=== PATIENT | male | born 1970 | race Two or more races ===

== ENCOUNTER 2019-02-06 17:28 | Inpatient (IN) | payer OTHER ==
[~2019-02-06] VITALS: Ht 182.9 cm; Wt 86.2 kg
[2019-02-06 20:30] VITALS: BP 115/70
--- NOTE | 2019-02-06 20:30 | NUR ---
RECEIVED PT FROM TRANSPORTATION TEAM. PT CAME IN [facility] AND ABLE TO AMBULATE TO [facility] BED. IV SITE ON L FA, 22G, PATENT, INTACT, AND ASYMPTOMATIC. PT ON 3LPM O2 VIA NC. BREATHING EVEN AND UNLABORED AT THIS TIME. SKIN INTACT, WARM AND DRY TO TOUCH. DX: ASTHMA, PLEURAL EFFUSION, COUGH. MRSA SWAB DONE, VS CHECKED, WITHIN PT'S BASELINE. BED IN LOW POSITION, CALL LIGHT WITHIN REACH.
--- NOTE | 2019-02-06 20:40 | NUR ---
REPORTED TO PRINTING PRESS MACHINE OPERATOR DR. MORALES THAT PATIENT ADMITTED. ALREADY AWARE AND WILL PLACE ORDER.
--- NOTE | 2019-02-06 21:05 | NUR ---
PT C/O HUNGER. GIVEN CHICKEN SANDWICH WITH WATER.
[2019-02-06] MEDS ORDERED: ACETAMINOPHEN 325 MG TAB PO PRN (21:20)
[2019-02-06] MEDS ORDERED: HYDROcodone/APAP 5/325 MG 1 TAB TAB PO PRN (21:20)
[2019-02-06] MEDS ORDERED: MORPHINE SULFATE 4 MG/ML SYR IVP PRN (21:20)
[2019-02-06] MEDS ORDERED: ONDANSETRON 4 MG/2 ML VIAL IVP PRN (21:20)
--- NOTE | 2019-02-06 23:55 | NUR ---
VS CHECKED, WITHIN PT'S BASE LINE. WILL CONTINUE TO MONITOR.
[2019-02-07] VITALS: BP 108/54
[2019-02-07] MEDS: PROMETH/CODEINE 6.25-10MG/5ML 5 ML UDC PO PRN (00:36)
--- NOTE | 2019-02-07 00:36 | NUR ---
PT C/O COUGHING. REPORT DR. MORALES, AND PHENERGAN/CODEINE GIVEN DR. MORALES ORDERED. PT TOLERATED WELL.
[2019-02-07] MEDS: ALBUTEROL 0.083% 2.5 MG/3 ML NEBU INH PRN ×2 (01:03→18:59)
--- NOTE | 2019-02-07 02:35 | NUR ---
PT SLEEPING IN BED COMFORTABLY. NO ACUTE DISTRESS NOTED.
[2019-02-07 04:00] VITALS: BP 91/60
--- NOTE | 2019-02-07 04:05 | NUR ---
VS CHECKED, WITHIN PT'S BASELINE. WILL CONTINUE TO MONITOR.
--- NOTE | 2019-02-07 06:25 | NUR ---
PT SLEEPING IN BED COMFORTABLY. NO ACUTE DISTRESS NOTED.
[2019-02-07 07:17] LABS: BASOPHILS % (AUTO) 0.1 % (0.0-2.0); HEMATOCRIT 36.2 % (36-52); LYMPHOCYTES # (AUTO) 0.8 K/uL (2.0-11.5); LYMPHOCYTES % (AUTO) 3.7 % (20.5-51.1); MEAN CORPUSCULAR HEMOGLOBIN 36 pg (27-31); MEAN CORPUSCULAR HGB CONC 33 g/dL (33-37); MEAN CORPUSCULAR VOLUME 109.2 fL (80-94); MONOCYTES % (AUTO) 4.6 % (1.7-9.3); NEUTROPHILS # (AUTO) 19.7 K/uL (1.8-7.7); NEUTROPHILS % (AUTO) 91.6 % (42.2-75.2); PLATELET COUNT (AUTO) 159 K/uL (140-450); RED BLOOD CELL COUNT(AUTO) 3.32 MIL/uL (4.20-6.10); RED CELL DISTRIBUTION WIDTH 13.5 % (11.6-13.7); WHITE BLOOD COUNT (AUTO) 21.5 K/uL (4.8-10.8)
--- NOTE | 2019-02-07 07:20 | NUR ---
RECEIVED BEDSIDE REPORT FROM HEALTH RECORDS TECHNOLOGY TEACHER NURSE, PT IS AWAKE AND ALERT, NO S/S OF ACUTE DISTRESS NOTED. PT IS ON 3L O2 NC. SKIN IS INTACT. IV SITE L AC 20 G, SALINE LOCKED. PT IS AMBULATORY AND ABLE TO MAKE NEEDS KNOWN. CALL LIGHT IS WITHIN REACH.
[2019-02-07 07:31] LABS: ANION GAP 13.3 (8-16); CARBON DIOXIDE 24.9 mmol/L (21-32); CREATININE 0.7 mg/dL (0.7-1.3); POTASSIUM 4.2 mmol/L (3.5-5.1)
[2019-02-07 07:43] LABS: PHOSPHORUS 2.1 mg/dL (2.5-4.9)
[2019-02-07 08:00] VITALS: BP 104/68
--- NOTE | 2019-02-07 10:31 | NUR ---
PT IS SLEEPING, NO S/S OF DISTRESS
[2019-02-07 11:42] LABS: PROTHROMBIN TIME 15.5 secs (10.8-13.4)
[2019-02-07 12:00] VITALS: BP 104/67
--- NOTE | 2019-02-07 12:01 | NUR ---
DISCHARGE PLANNIN48 Y/O MALE PATIENT FROM HOME. ADMITTED DUE TO WORSENING DYSPNEA FOR THE PAST WEEK. NO PAST MEDICAL HISTORY. INITIAL DIAGNOSIS OF ASTHMA, PLEURAL EFFUSION AND COUGH. WBC 21.5. ON UNASYN IV. CXR SHOWED LARGE RIGHT PLEURAL EFFUSION. UNDERLYING PULMONARY NODULE, MASS OR CONSOLIDATION IS NOT EXCLUDED. FOR THORACENTESIS. WILL DC IN AM IF IMPROVED. Addendum: 02/08/19 at 1444 by Vane Lombardi CM IR WAS NOT ABLE TO DO THORACENTESIS YESTERDAY DUE TO PATIENT'S ELEVATED INR. REPEAT INR WAS DRAWN THIS MORNING, WENT UP TO 1.63. FFP ORDERED. WILL FOLLOW UP. Addendum: 02/10/19 at 1238 by Vane Lombardi CM RECEIVED AN ORDER FOR HIGHER LEVEL OF CARE TRANSFER TO [facility] FOR THORACIC SURGERY. CONTACTED PAT VALER[facility]O MARIBELL [facility] AT [phone], SHE STATED THEY HAVE A MED SURG BED AT THIS THIS TIME. I TOLD HER I HAVE TO GET AN AUTH FROM INSURANCE. SHE PROVIDED ME WITH FAX NUMBER [phone] TO SEND REFERRAL. CONTACTED KAITLYNN OF [facility] AT [phone] REGARDING ORDER. SHE STATED THEY ARE CONTRACTED WITH [facility] AND HAVE [facility] CALL HER FOR AUTH. I ASKED FOR TRANSPORT AUTH WELL. SHE STATED SHE WILL GET BACK TO ME FOR TRANSPORT AUTH. REFERRAL AND ORDER SENT TO [facility] AND [facility]. Addendum: 02/10/19 at 1330 by Vane Lombardi CM RECEIVED A CALL FROM [facility], SHE STATED PATIENT WILL GO TO [id number] DONNELLY. NUMBER TO CALL FOR REPORT [phone]. PRIMARY RN RAGHAVENDRA AND CHARGE NURSE MAMADOU MADE AWARE.
--- NOTE | 2019-02-07 12:15 | NUR ---
Manager Desktop Note: Basic Screen: Yes High Risk DC Screen [place]: GAYATRI Luciano Relationship: SISTER Pre-Admission Living Arrangements: Lives with Other Prior ADL Independent Current Home Health Name/Tel: N/A Current DME/02 Name/Tel: N/A Current Hospice Name/Tel: N/A Current Dialysis Name/Tel: N/A Healthcare Decision Maker: Patient Advance Directive Yes Physician Orders for Life Sustaining Treatment Form No Patient/Family Have Educational Needs No Information Taught: Advance Directive Person Taught: Patient Teaching Tools: Verbal Participation Level: Active Evaluation: Verbalizes Understanding Needs Additional Education: No Discipline: Case Mgt/Social Svcs Tentative Discharge Plan/Destination: No Needs Identified Will require assistance post discharge: No Referred to World History Teacher: No Tentative Discharge Plan Summary: Patient is a 48 year old male admitted for asthma and pleural effusion. Patient has PMHX of asthma. Patient was admitted from home. SW verified demographics with patient. Pateint stated that his PCP is Dr. Nancy Davies and was last seen two years ago. Patient reports no history of mental health and no history of substance abuse. Patient's tentative discharge plan is to return home. No further needs identified. Signature: RAHUL Quiñonez Date: Feb 07, 2019 Time: 12:14
[2019-02-07] MEDS: AMPICILLIN/SULBACTAM 3 GM in NACL 0.9% 100 ML IV SCH ×3 (13:02→23:06)
--- NOTE | 2019-02-07 13:10 | NUR ---
GOT A CALL FROM CUSTOMS INVESTIGATOR, SHE SAID SHE SPOKE WITH THE RADIOLOGIST WHO WILL BE DOING THORACENTESIS, PER RADIOLOGIST THE PT'S PTT/INR NEEDS TO BE LOWER BEFORE THE PROCEDURE IS DONE.
--- NOTE | 2019-02-07 14:17 | NUR ---
PCP Appointment: OSMANI contacted Jocelin from Dr. Nancy Davies's office. OSMANI attempted to schedule hospital follow up appointment. Jocelin stated that patient has not been seen by PCP before and would need to register as a new patient from 9:00AM - 12:30PM on 02/23/2019 @ [address] [place] [address]. Jocelin stated that patient would complete registration and a physical and follow up would be scheduled. OSMANI left appointment slip with registration time in patient's chart to be given at discharge.
--- NOTE | 2019-02-07 15:48 | NUR ---
PATIENT HAS BEEN SCREENED AND CATEGORIZED LOW NUTRITION RISK. PATIENT WILL BE SEEN WITHIN 7 DAYS OF ADMISSION. 02/13/[address]
[2019-02-07 16:00] VITALS: BP 123/69
--- NOTE | 2019-02-07 18:35 | NUR ---
PT ATE 100% OF HIS DINNER, NOW SITTING UP IN BED WATCHING TV. IV UNASYN IS INFUSING. NO C/O OF SOB.
--- NOTE | 2019-02-07 19:20 | NUR ---
PT ENDORSED TO PADDLE DYEING MACHINE OPERATOR NURSE IN STABLE CONDITION.
--- NOTE | 2019-02-07 19:28 | NUR ---
RECEIVED BEDSIDE REPORT FROM DAY SHIFT NURSE. PATIENT IS AWAKE, ALERT, AND COOPERATIVE. RESPIRATION EVEN UNLABORED ON 3L 02 NC. NO DISTRESS NOTED. SKIN IS WARM AND DRY. IV PATENT AND INTACT. DENIES PAIN. PLAN OF CARE WAS DISCUSSED. ALL SAFETY MEASURES IN PLACE. BED IS AT LOW POSITION. CALL LIGHT WITHIN REACH AND VERBALIZES ITS USE. WILL CONTINUE TO MONITOR.
[2019-02-07 20:00] VITALS: BP 102/56
--- NOTE | 2019-02-07 20:00 | NUR ---
INITIAL ASSESSMENT DONE. VITALS WERE TAKEN. PATIENT IN STABLE CONDITION. NO DISTRESS NOTED. WILL CONTINUE TO MONITOR.
--- NOTE | 2019-02-07 21:00 | NUR ---
PATIENT IN BED WATCHING TV RESPIRATION EVEN UNLABORED ON 3L NC O2. NO DISTRESS NOTED. WILL CONTINUE TO MONITOR.
--- NOTE | 2019-02-07 23:45 | NUR ---
VITALS WERE TAKEN. PATIENT IN STABLE CONDITION. NO DISTRESS NOTED. WILL CONTINUE TO MONITOR.
[2019-02-08] VITALS: BP 114/64
[2019-02-08] MEDS: PROMETH/CODEINE 6.25-10MG/5ML 5 ML UDC PO PRN (00:12)
--- NOTE | 2019-02-08 00:13 | NUR ---
PATIENT COMPLAINED OF COUGH. PRN COUGH ADMINISTERED PER ORDER. WILL CONTINUE TO MONITOR.
--- NOTE | 2019-02-08 03:05 | NUR ---
CHECKED ON PATIENT. PATIENT SLEEPING RESPIRATION EVEN UNLABORED ON 2L NC O2. NO DISTRESS NOTED. WILL CONTINUE TO MONITOR.
[2019-02-08 04:00] VITALS: BP 110/72
--- NOTE | 2019-02-08 04:05 | NUR ---
VITALS WERE TAKEN. PATIENT IN STABLE CONDITION. NO DISTRESS NOTED. WILL CONTINUE TO MONITOR.
[2019-02-08] MEDS ORDERED: AMPICILLIN/SULBACTAM 3 GM VIAL ONE (05:55)
[2019-02-08] MEDS: AMPICILLIN/SULBACTAM 3 GM in NACL 0.9% 100 ML IV SCH ×3 (06:06→19:40)
--- NOTE | 2019-02-08 06:45 | NUR ---
PATIENT IN BED SLEEPING RESPIRATION EVEN UNLABORED ON ROOM AIR. NO DISTRESS NOTED. WILL CONTINUE TO MONITOR
--- NOTE | 2019-02-08 07:13 | NUR ---
ENDORSED PATIENT TO DAY SHIFT NURSE. PATIENT IN STABLE CONDITION.
--- NOTE | 2019-02-08 07:14 | NUR ---
RECEIVED BEDSIDE REPORT FROM RADIO DIVISION LIEUTENANT NURSE. PATIENT IS AWAKE, ALERT AND ORIENTEDX4. NO SIGNS OF DISTRESS ON 3L NC. SKIN IS INTACT. IV ON L AC 20G SL. CLEAN, DRY AND INTACT. TELE MONITOR IN PLACE. AMBULATORY. CONTINENT. ABLE TO MAKE NEEDS KNOWN. BED IN LOW POSITION. CALL LIGHT WITHIN REACH. WILL CONTINUE TO MONITOR
[2019-02-08 08:00] VITALS: BP 105/75
[2019-02-08 08:01] LABS: BASOPHILS % (AUTO) 0.2 % (0.0-2.0); EOSINOPHILS # (AUTO) 0.1 K/uL (0-0.4); EOSINOPHILS % (AUTO) 0.4 % (0.0-4.0); HEMATOCRIT 35.4 % (36-52); HEMOGLOBIN 11.6 g/dL (12.0-18.0); LYMPHOCYTES # (AUTO) 1.3 K/uL (2.0-11.5); LYMPHOCYTES % (AUTO) 9.3 % (20.5-51.1); MEAN CORPUSCULAR HEMOGLOBIN 36 pg (27-31); MEAN CORPUSCULAR HGB CONC 33 g/dL (33-37); MEAN CORPUSCULAR VOLUME 109.6 fL (80-94); MONOCYTES # (AUTO) 1.1 K/uL (0.8-1.0); MONOCYTES % (AUTO) 7.6 % (1.7-9.3); NEUTROPHILS # (AUTO) 11.5 K/uL (1.8-7.7); NEUTROPHILS % (AUTO) 82.5 % (42.2-75.2); PLATELET COUNT (AUTO) 155 K/uL (140-450); RED BLOOD CELL COUNT(AUTO) 3.23 MIL/uL (4.20-6.10); RED CELL DISTRIBUTION WIDTH 13.5 % (11.6-13.7)
[2019-02-08 08:20] LABS: ANION GAP 11.5 (8-16); CARBON DIOXIDE 25.2 mmol/L (21-32); CREATININE 0.7 mg/dL (0.7-1.3); POTASSIUM 3.7 mmol/L (3.5-5.1)
[2019-02-08 08:27] LABS: MAGNESIUM 1.7 mg/dL (1.8-2.4); PHOSPHORUS 2.7 mg/dL (2.5-4.9)
[2019-02-08 09:09] LABS: PROTHROMBIN TIME 16.4 secs (10.8-13.4)
--- NOTE | 2019-02-08 09:12 | NUR ---
PATIENT IN NO DISTRESS. WILL CONTINUE TO MONITOR THE PATIENT. PATIENT REQUESTS TWO CUPS. GAVE PATIENT TWO CUPS. WILL CONTINUE TO MONITOR
--- NOTE | 2019-02-08 10:34 | NUR ---
LAYING IN BED. NO SIGNS OF DISTRESS. WILL CONTINUE TO MONITOR
--- NOTE | 2019-02-08 11:22 | NUR ---
PATIENT SIGNED CONSENT FOR FFP. EDUCATED ON BLOOD TRANSFUSION. BLOOD TRANSFUSION REACTION AND GAVE HIM THE GUIDE. PATIENT HAS NO QUESTIONS. WILL CONTINUE TO MONITOR
--- NOTE | 2019-02-08 11:31 | NUR ---
ADMINISTERED MEDS. EDUCATED ON SIDE EFFECTS. PATIENT TOLERATED WELL. WILL CONTINUE TO MONITOR
[2019-02-08] MEDS ORDERED: MAGNESIUM OXIDE 400 MG TAB PO SCH (11:50)
[2019-02-08 12:00] VITALS: BP 111/75
--- NOTE | 2019-02-08 13:56 | NUR ---
PATIENT IN NO DISTRESS RESTING IN BED. NO SIGNS OF DISTRESS. WILL CONTINUE TO MONITOR THE PATIENT
[2019-02-08 14:41] LABS: PROTHROMBIN TIME 15.5 secs (10.8-13.4)
--- NOTE | 2019-02-08 15:16 | NUR ---
PATIENT URINATED ON THE FLOOR ACCIDENTALLY. HE WAS UNABLE TO UNZIP HIS PANTS. PATIENT BACK IN BED IN STABLE CONDITION. PAGED EVS TO CLEAN THE FLOOR
[2019-02-08 16:00] VITALS: BP 101/66
--- NOTE | 2019-02-08 17:35 | NUR ---
FFP STARTED. PATIENT SHOWS NO DISTRESS AT THIS TIME
[2019-02-08] MEDS: ALBUTEROL 0.083% 2.5 MG/3 ML NEBU INH PRN (18:57)
--- NOTE | 2019-02-08 19:20 | NUR ---
GAVE BEDSIDE REPORT TO SURGEON/PRESIDENT NURSE. PATIENT ENDORSED IN STABLE CONDITION. ENDORSED TO NURSE TO GET CALL LAB TO DO INR WHEN SECOND FFP IS DONE
--- NOTE | 2019-02-08 19:30 | NUR ---
RECEIVED BEDSIDE REPORT FROM AM SHIFT RN MAMADOU, FOR PT'S CONTINUITY OF CARE. PT AAOX4, LYING DOWN WATCHING TV, IS ON SAVINGS COUNSELOR, IS ON 3L O2 VIA NC, HAS LEFT AC 20G WITH FFP INFUSING, HAS INTERMITTENT PRODUCTIVE COUGHING, DENIES ANY PAIN AT THIS TIME. EXPLAINED TO PT THE EXPLOSIVE TECHNICIAN ROUTINE AND THE ADMINISTRATION OF 2ND UNIT OF FFP, PT VERBALIZED UNDERSTANDING. BED IS ON LOW POSITION, SIDE RAILS ARE UP, AND CALL LIGHT IS WITHIN REACH. WILL MONITOR PT THROUGHOUT SHIFT.
--- NOTE | 2019-02-08 19:40 | NUR ---
FFP INFUSION ENDED. BLOOD TRANSFUSION RECORD DONE. PT DENIES ANY REACTION, NO VISIBLE REACTION NOTED. ADMINISTERED SCHEDULED IV ABX ORDERED. WILL CONTINUE TO MONITOR PT.
[2019-02-08 20:00] VITALS: BP 117/78
--- NOTE | 2019-02-08 20:30 | NUR ---
INFORMED LAB 1ST UNIT OF FFP ENDED. WILL START WITH THE 2ND UNIT OF FFP TO THAW.
--- NOTE | 2019-02-08 22:30 | NUR ---
CALLED LAB FOR STATUS OF FFP, PER LAB, WILL BE DONE SOON.
[2019-02-09] VITALS (8 sets, daily range): BP systolic 99–120; BP diastolic 72–80
[2019-02-09] MEDS: PROMETH/CODEINE 6.25-10MG/5ML 5 ML UDC PO PRN (00:13)
--- NOTE | 2019-02-09 00:13 | NUR ---
ADMINISTERED 2ND UNIT OF FFP, BLOOD TRANSFUSION PROTOCOL IN PLACE, PT DENIES ANY PAIN OR REACTION, REQUESTED FOR COUGH MEDICATION. ADMINISTERED PO PRN COUGH MEDICATION ORDERED. PT TEACHING GIVEN. WILL CONTINUE TO FOLLOW BLOOD TRANSFUSION PROTOCOL.
--- NOTE | 2019-02-09 02:40 | NUR ---
2ND UNIT OF FFP ENDED. FOLLOWED BLOOD TRANSFUSION PROTOCOL, PT DENIES ANY PAIN OR REACTION. WILL CONTINUE TO MONITOR PT.
[2019-02-09] MEDS: AMPICILLIN/SULBACTAM 3 GM in NACL 0.9% 100 ML IV SCH ×4 (03:15→17:18)
--- NOTE | 2019-02-09 03:15 | NUR ---
ADMINISTERED IV ABX ORDERED. PT TOLERATED IT WELL. WILL CONTINUE TO MONITOR PT.
[2019-02-09 06:08] LABS: BASOPHILS % (AUTO) 0.2 % (0.0-2.0); EOSINOPHILS # (AUTO) 0.3 K/uL (0-0.4); HEMATOCRIT 35.5 % (36-52); LYMPHOCYTES % (AUTO) 18.7 % (20.5-51.1); MEAN CORPUSCULAR HEMOGLOBIN 37 pg (27-31); MEAN CORPUSCULAR HGB CONC 34 g/dL (33-37); MEAN CORPUSCULAR VOLUME 108.8 fL (80-94); MONOCYTES # (AUTO) 0.7 K/uL (0.8-1.0); MONOCYTES % (AUTO) 7.1 % (1.7-9.3); NEUTROPHILS # (AUTO) 7.5 K/uL (1.8-7.7); PLATELET COUNT (AUTO) 142 K/uL (140-450); RED BLOOD CELL COUNT(AUTO) 3.26 MIL/uL (4.20-6.10); RED CELL DISTRIBUTION WIDTH 13.4 % (11.6-13.7); WHITE BLOOD COUNT (AUTO) 10.5 K/uL (4.8-10.8)
--- NOTE | 2019-02-09 06:09 | NUR ---
PT LYING DOWN ASLEEP. ADMINISTERED SCHEDULED IV ABX ORDERED. PT DENIES ANY PAIN AT THIS TIME. WILL ENDORSE PT TO AM SHIFT RN FOR PT'S CONTINUITY OF CARE.
[2019-02-09 06:31] LABS: ANION GAP 9.8 (8-16); CARBON DIOXIDE 27.6 mmol/L (21-32); CREATININE 0.6 mg/dL (0.7-1.3); POTASSIUM 3.4 mmol/L (3.5-5.1)
[2019-02-09 06:36] LABS: MAGNESIUM 1.5 mg/dL (1.8-2.4); PHOSPHORUS 3.2 mg/dL (2.5-4.9)
[2019-02-09 06:53] LABS: PROTHROMBIN TIME 15.2 secs (10.8-13.4)
[2019-02-09] MEDS: ALBUTEROL 0.083% 2.5 MG/3 ML NEBU INH PRN ×2 (07:11→20:32)
--- NOTE | 2019-02-09 07:12 | NUR ---
RECEIVED REPORT FROM CAPO RN. PT RESTING IN BED. AAOX4. NO S/S OF ACUTE DISTRESS. PT ON O2 2L NC. IV SITE PATENT AND INTACT. CALL LIGHT WITHIN REACH. SAFETY MEASURES ENSURED. WILL CONTINUE TO MONITOR.
[2019-02-09] MEDS: MAGNESIUM OXIDE 400 MG TAB PO SCH (08:14)
--- NOTE | 2019-02-09 11:13 | NUR ---
PATIENT RESTING IN BED. NO S/S OF ACUTE DISTRESS. PT DENIES PAIN. IV SITE PATENT AND INTACT. CALL LIGHT WITHIN REACH. SAFETY MEASURES ENSURED. WILL CONTINUE TO MONITOR.
[2019-02-09] MEDS ORDERED: POTASSIUM CHLORIDE 10 MEQ TABER PO SCH (12:00)
[2019-02-09] MEDS ORDERED: FUROSEMIDE 40 MG/4 ML VIAL IVP SCH (12:00)
--- NOTE | 2019-02-09 13:57 | NUR ---
THORACENTESIS DONE AT BEDSIDE. CONSENT SIGNED AND TIMEOUT PERFORMED OUT 1345. NO S/S OF ACUTE DISTRESS. PT DENIES PAIN. 1050ML YELLOW DRAINAGE. SENT TO LAB FOR CULTURE.
--- NOTE | 2019-02-09 19:30 | NUR ---
RECEIVED BEDSIDE REPORT FROM AM SHIFT VALERIANO GONZALEZ, FOR PT'S CONTINUITY OF CARE. PT IS LYING DOWN ASLEEP WITH NO SIGNS OF DISTRESS. PT IS ON 2L O2 VIA NC, ON TURF KEEPER, HAS LEFT AC/FA 20G SALINE LOCK. BED IS ON LOW POSITION, SIDE RAILS ARE UP, AND CALL LIGHT IS WITHIN REACH. WILL MONITOR PT THROUGHOUT SHIFT.
--- NOTE | 2019-02-09 20:00 | NUR ---
VS CHECKED AND CHARTED. PT'S DRESSING ON THORACENTESIS SITE IS DRY AND INTACT. PT DENIES ANY PAIN AT THIS TIME AND STATES FEELS MUCH BETTER AND COULD BREATHE MUCH BETTER. WILL CONTINUE TO MONITOR PT.
--- NOTE | 2019-02-09 21:50 | NUR ---
PT REQUESTED FOR SANDWICH AND APPLE JUICE. PT DENIES ANY PAIN AT THIS TIME, DENIES ANY SOB. WILL CONTINUE TO MONITOR PT.
[2019-02-10] VITALS: BP 105/71
--- NOTE | 2019-02-10 | NUR ---
VS CHECKED AND CHARTED. PT ASLEEP WITH NO SIGNS OF DISTRESS, WOKE UP AND DENIES ANY PAIN OR SOB.
--- NOTE | 2019-02-10 02:06 | NUR ---
MADE ROUNDS. PT LYING DOWN ASLEEP WITH NO SIGNS OF DISTRESS OR SOB. WILL CONTINUE TO MONITOR PT.
[2019-02-10 04:00] VITALS: BP 102/72
--- NOTE | 2019-02-10 04:00 | NUR ---
VS CHECKED AND CHARTED. PT ASLEEP WITH NO SIGNS OF DISTRESS OR SOB.
[2019-02-10] MEDS: AMPICILLIN/SULBACTAM 3 GM in NACL 0.9% 100 ML IV SCH ×4 (05:05→12:33)
--- NOTE | 2019-02-10 05:05 | NUR ---
ADMINISTERED SCHEDULED IV ABX ORDERED. PT AWAKE, SITTING UP, DENIES ANY PAIN OR DISCOMFORT OR SOB. WILL CONTINUE TO MONITOR PT.
[2019-02-10 06:28] LABS: ANION GAP 13.1 (8-16); CARBON DIOXIDE 25.7 mmol/L (21-32); CREATININE 0.7 mg/dL (0.7-1.3); MAGNESIUM 1.6 mg/dL (1.8-2.4); PHOSPHORUS 3.6 mg/dL (2.5-4.9); POTASSIUM 3.8 mmol/L (3.5-5.1)
--- NOTE | 2019-02-10 06:35 | NUR ---
PT AWAKE, LYING DOWN RESTING, DENIES ANY PAIN OR DISCOMFORT. WILL ENDORSE TO AM SHIFT RN FOR PT'S CONTINUITY OF CARE.
[2019-02-10 07:15] LABS: BASOPHILS % (AUTO) 0.3 % (0.0-2.0); EOSINOPHILS # (AUTO) 0.5 K/uL (0-0.4); EOSINOPHILS % (AUTO) 3.6 % (0.0-4.0); HEMATOCRIT 38.1 % (36-52); HEMOGLOBIN 12.5 g/dL (12.0-18.0); LYMPHOCYTES # (AUTO) 1.9 K/uL (2.0-11.5); LYMPHOCYTES % (AUTO) 14.6 % (20.5-51.1); MEAN CORPUSCULAR HEMOGLOBIN 36 pg (27-31); MEAN CORPUSCULAR HGB CONC 33 g/dL (33-37); MEAN CORPUSCULAR VOLUME 109.2 fL (80-94); MONOCYTES # (AUTO) 0.7 K/uL (0.8-1.0); MONOCYTES % (AUTO) 5.5 % (1.7-9.3); NEUTROPHILS # (AUTO) 9.9 K/uL (1.8-7.7); PLATELET COUNT (AUTO) 179 K/uL (140-450); RED BLOOD CELL COUNT(AUTO) 3.48 MIL/uL (4.20-6.10); RED CELL DISTRIBUTION WIDTH 13.8 % (11.6-13.7); WHITE BLOOD COUNT (AUTO) 13.1 K/uL (4.8-10.8)
--- NOTE | 2019-02-10 07:15 | NUR ---
RECEIVED REPORT FROM YARD WAREHOUSE WORKER NURSE. PATIENT LYING DOWN IN BED SLEEPING, AROUSABLE BY VOICE. NO DISTRESS NOTED. RESPIRATIONS EVEN, UNLABORED, ON ROOM AIR. IV SITE INTACT, PATENT, AND INFUSING IVF PER MD ORDERS. AAOX4, CALM, COOPERATIVE, SKIN COLOR APPROPRIATE TO ETHNICITY, WARM TO TOUCH. SKIN INTACT. SCLERA JAUNDICED NOTED. ABDOMEN SOFT, NON-DISTENDED. REVIEWED PLAN OF CARE WITH PATIENT. PATIENT VERBALIZED UNDERSTANDING. SAFETY MEASURES IN PLACE, CALL LIGHT WITHIN REACH. WILL CONTINUE TO MONITOR.
[2019-02-10 08:00] VITALS: BP 123/83
--- NOTE | 2019-02-10 10:00 | NUR ---
MEDICATIONS ADMINISTERED, NO DISTRESS NOTED. EDUCATED ON SIGNS AND SYMPTOMS, WILL CONTINUE TO MONITOR.
[2019-02-10] MEDS: MAGNESIUM OXIDE 400 MG TAB PO SCH (10:02)
[2019-02-10 12:00] VITALS: BP 117/77
--- NOTE | 2019-02-10 12:00 | NUR ---
PATIENT SITTING IN BED WITH LUNCH TRAY IN FRONT. NO DISTRESS NOTED. DENIES ANY PAIN. WILL CONTINUE TO MONITOR.
--- NOTE | 2019-02-10 15:00 | NUR ---
DISCHARGE INSTRUCTIONS GIVEN TO PATIENT IN PREFERRED LANGUAGE OF [place]. INSTRUCTIONS ON MEDICATIONS/SIDE EFFECTS, DIET REGIMEN, AND TRANSFER TO HIGHER LEVEL OF CARE PROVIDED TO PATIENT. ANSWERED ALL OF PATIENT'S QUESTIONS REGARDING TRANSFER. PATIENT VERBALIZED COMPLETE UNDERSTANDING. CALLED [facility] AND GAVE REPORT TO VALERIANO TREVIZO. ANSWERED ALL OF RN'S QUESTIONS REGARDING TRANSFER. NOTIFIED HER THAT [facility] WAS ON UNIT READY TO BE TRANSFFERED. RN VERBALIZED UNDERSTANDING. PATIENT TRANSFERRED AT THIS TIME TO [facility]IA [facility]. PATIENT IN STABLE CONDITION.
== END 2019-02-10 14:55 | disposition short-term general hospital (02) | DRG 720 ==
LOC: MTU 20:15
PROVIDERS: ADMIT Internal Medicine Pulmonary Disease; ATTEND Internal Medicine Pulmonary Disease
PROC: 30233K1 Transfusion of Nonautologous Frozen Plasma into Peripheral Vein, Percutaneous Approach (ICD-10-PCS; 2019-02-08)
PROC: 0W993ZZ Drainage of Right Pleural Cavity, Percutaneous Approach (ICD-10-PCS; principal; 2019-02-09)
DX: A41.9 Sepsis, unspecified organism (principal); J91.8 Pleural effusion in other conditions classified elsewhere; J18.9 Pneumonia, unspecified organism
CPT/HCPCS: 36415; 71045; 71046; 76604; 76942; 80048; 83735; 84100; 85025; 85610; 85730; 86870; 86886; 86900; 86901; 87070; 87075; 87081; 87205; 94640; J0295; J1940; J2001; J7030; J7613; P9017; Q0092